=== PATIENT | female | born 1990 | race Caucasian/White ===

== ENCOUNTER 2024-01-31 15:12 | Observation (INO) ==
[2024-01-31] MEDS: fentaNYL 100 mcg/2 ml 50 MCG/ML VIAL IV SLOW PU ONE ×2 (15:37→18:24)
[2024-01-31 15:56] LABS: ABS Basophils 0.1 10^3/uL (0.0-0.1); ABS Eosinophils 0.1 10^3/uL (0.0-0.5); ABS Lymphocytes 1.4 10^3/uL (1.0-4.8); ABS Monocytes 0.5 10^3/uL (0.0-0.9); ABS Nucleated RBC 0.01 10^3/ul; Eosinophil % 0.9 %; Hematocrit 37.7 % (35-45); Hemoglobin 13.1 g/dL (11.5-14.3); Lymphocyte % 17.3 %; Mean Corpuscular Hemoglobin 31.3 pg (27-33); Mean Corpuscular Hgb Conc 34.7 g/dL (31-36); Mean Corpuscular Volume 90.3 fL (80-97); Mean Platelet Volume 8.4 fL (7.5-11.2); Nucleated Red Blood Cells % 0.1 %/100WBC (0.0-0.8); Platelet Count 244 10^3/uL (150-450); Red Blood Count 4.18 10^6/uL (3.63-4.92); Red Cell Distribution Width 13.1 % (12-17); White Blood Count 7.9 10^3/uL (3.8-11.8)
[2024-01-31 16:24] LABS: ALT 16 U/L (7-52); AST 15 U/L (13-39); Albumin 4.5 g/dL (3.2-5.2); Alkaline Phosphatase 57 U/L (35-149); Anion Gap 10 mmol/L (2-16); Blood Urea Nitrogen 22 mg/dL (6-24); CO2 Carbon Dioxide 22 mmol/L (22-32); Calcium 9.4 mg/dL (8.6-10.3); Chloride 104 mmol/L (101-111); Creatinine, Serum 0.73 mg/dL (0.51-0.95); Globulin 2.2 g/dL (2-4); Glucose 108 mg/dL (70-100); Potassium 3.9 mmol/L (3.5-5.0); Sodium 136 mmol/L (135-145); Total Bilirubin 0.5 mg/dL (0.2-1.0); Total Protein 6.7 g/dL (6.4-8.9); eGFR CKD-EPI 111.3 (>60)
[2024-01-31] MEDS ORDERED: ceFAZolin 2 GM in NS PREMIX 2 GM/100 ML BAG IVPB ONE (16:38)
[2024-01-31] MEDS ORDERED: Succinylcholine 200 mg VIAL 20 mg/ml 10 ml VIAL (200 mg) ONE (16:45)
[2024-01-31] MEDS ORDERED: Rocuronium 50 mg VIAL 10 mg/ml 5 ml VIAL (50 mg) ONE ×2 (16:45→20:30)
[2024-01-31] MEDS: Propofol 10 MG/ML 20 ML BTL IV PUSH ONE (17:01)
[2024-01-31] MEDS: Lactated Ringers 1000 ml BAG 1,000 ML IV ONE (17:02)
[2024-01-31] MEDS: Tetan/Diph/Pertus SYR(Tdap) 0.5 ML SYR(BOOSTRIX) use SYR contains LATEX IM ONE (17:02)
[2024-01-31] MEDS: ceFAZolin 2 GM/50 ML BAG IV ONE (17:56)
[2024-01-31] MEDS ORDERED: Metoclopramide 5 MG/ML VIAL (10 mg) IV PRN (19:24)
[2024-01-31] MEDS ORDERED: Naloxone 0.4 mg VIAL 0.4 mg/ml 1 ml VIAL IV PRN (19:24)
[2024-01-31] MEDS ORDERED: Ondansetron 4 mg VIAL 2 MG/ML 2 ml VIAL IV PRN (19:24)
[2024-01-31] MEDS ORDERED: fentaNYL 100 mcg/2 ml 50 MCG/ML VIAL IV PRN (19:24)
[2024-01-31] MEDS ORDERED: NS 0.45% 1000 ml BAG 1,000 ML IV SCH (20:00)
[2024-01-31] MEDS ORDERED: Ondansetron 4 mg VIAL 2 MG/ML 2 ml VIAL ONE (20:30)
[2024-01-31] MEDS ORDERED: Dexamethasone IV 4 MG/ML VIAL 1 ml VIAL ONE (20:30)
[2024-01-31 21:58] LABS: HCG Pregnancy < 0.60 mIU/mL
[2024-01-31] MEDS ORDERED: ceFAZolin 2 GM PREMIX 2 GM/50 ML BAG ONE (22:38)
[2024-01-31] MEDS ORDERED: Desflurane 240 ML INH ONE (23:30)
[2024-02-01] MEDS ORDERED: Ondansetron ODT 4 mg TAB 4 MG TAB PO PRN (00:25)
[2024-02-01] MEDS ORDERED: Magnesium Hydroxide LIQ 30 ML UDC PO PRN (00:25)
[2024-02-01] MEDS ORDERED: Lactulose 30 ml UDC PO PRN (00:25)
[2024-02-01] MEDS ORDERED: Ondansetron 4 mg VIAL 2 MG/ML 2 ml VIAL IV PRN (00:25)
[2024-02-01] MEDS: Morphine 2 MG/ML SYRINGE IV PRN (01:27)
[2024-02-01] MEDS: Lactated Ringers 1000 ml BAG 1,000 ML IV SCH ×2 (01:55→02:49)
[2024-02-01] MEDS: Scopolamine 1 mg/72hr PATCH TRANSDERM ONE (02:49)
[2024-02-01] MEDS: Buffered Lidocaine 1% SYRIN 1 ml INTRADERM ONE (02:49)
[2024-02-01] MEDS: Acetaminophen IV 1 GM/100ML 1,000 MG/100 ML BAG IV ONE (02:49)
[2024-02-01] MEDS: ceFAZolin 1 GM ADVAN 1 GM in NS 0.9% 50 ML 50 ML IVPB SCH (05:21)
[2024-02-01] MEDS ORDERED: Vitamin THERAPEUTIC TAB PO SCH (09:00)
[2024-02-01] MEDS: Magnesium Hydroxide LIQ 30 ML UDC PO SCH (11:10)
[2024-02-01] MEDS: Enoxaparin 30 MG/0.3 ML SYR SUBCUT SCH (11:10)
[2024-02-01 14:41] VITALS: BP 116/72
== END 2024-02-01 16:00 | disposition home or self-care (01) ==
LOC: ED 15:12 → SDS 21:05 → SSU 21:05 → SDS 21:09
PROVIDERS: ADMIT Orthopaedic Surgery Adult Reconstructive Orthopaedic Surgery; ATTEND Orthopaedic Surgery Adult Reconstructive Orthopaedic Surgery